=== PATIENT | male | born 1930 | race Caucasian/White ===

== ENCOUNTER 2016-11-19 17:06 | Inpatient (IN) | payer MEDICARE, OTHER ==
--- NOTE | ~2016-11-19 | DS ---
Unit #: [id number] #: [id number] Patient: JOZEF BATISTA [id number] [address] [place], [place] [address] [id number] I MR#: [id number] NAME: JOZEF BATISTA ROOM: 341 Age: 86 Sex: M Admission Date: 11/20/2016 : 1930 Discharge Date: Attending Physician: Thiago Manning M.D. Primary Care Physician: Milton Banerjee M.D. DISCHARGE SUMMARY DISCHARGE DIAGNOSES 1. Chest pain status post cardiac catheterization performed by Dr. Manning on 11/21/2016, in which findings revealed: a. Patent stent in the proximal circumflex. b. Stenosis, 50%, in the mid left circumflex. c. Severe aortic stenosis with aortic valve area of 1.02 centimeters squared with severe left ventricular systolic dysfunction, ejection fraction 25%, jrxl-io-hvcuulql pulmonary hypertension and ztkz-pq-vkidaroa aortic regurgitation. d. Recommendations - Continue on medical therapy with strict fluid restriction, salt restriction. Continuation of treatment with nonselective beta-blockers, diuretics and afterload reducing agents. 2. Diabetes mellitus type 2, insulin dependent. 3. Hypertension. 4. Permanent pacemaker. 5. Right bundle branch block on electrocardiogram. 6. Bronchiectasis with acute bronchitis. 7. 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 8. Benign prostatic hypertrophy. DISCHARGE MEDICATIONS 1. Humulin 70/30 - 27 units subcu b.i.d. 2. Allopurinol 300 mg p.o. daily. 3. Proscar 5 mg p.o. daily. 4. Aspirin 81 mg p.o. daily. 5. Amoxicillin 500 mg p.o. t.i.d. for 7 more days. 6. Flomax 0.4 mg p.o. daily. 7. Acetaminophen 1,000 mg p.o. daily p.r.n. 8. Calcium 600 mg p.o. daily. 9. Pioglitazone 45 mg p.o. daily. 10. Metoprolol 25 mg p.o. b.i.d. 11. Furosemide 40 mg 1 1/2 tablets in the morning and 1 1/2 tablets in the evening. 12. Lipitor 20 mg p.o. daily. 13. Altace 10 mg p.o. daily. 14. K-Dur 20 mEq p.o. daily. HOSPITAL COURSE This is an 86-year-old white male who came to the hospital with complaints of sudden onset of sharp shooting pain in the right lower chest area radiating to the base of the neck and also into the right upper and lower extremity. He denied any diaphoresis. No palpitations. Denied Unit #: [id number] #: [id number] Patient: JOZEF BATISTA any dizziness, pre-syncope or syncope or any problems swallowing. He took 2 sublingual nitroglycerin, and the pain eased off. He had not had any fever or chills but has a chronic cough. He was concerned because he stated he had never had any similar pains in the past. He did mention that he had been having worsening shortness of breath on minimal exertion over the last several weeks, and he has been having to stop more frequently to rest in his day-to-day activities. He also reported that his leg edema was worsening. The patient had a CT of the chest that showed advanced emphysematous changes. No effusions, but there was some bronchiectasis in the lower lobes. Also found was aneurysmal dilatation of the ascending aorta, up to 4 cm, and calcified aortic valve. Patient was started on antibiotics for the bronchiectasis. It was felt that some of his chest pain was more pleuritic in nature. Also on the chest x-ray, it had been indicated that he had some fluid overload. With the patient having known aortic stenosis and having a stent in the past, it was felt he should have further ischemic heart disease workup and evaluate his aortic stenosis by cardiac catheterization. Dr. Manning performed a right and a left heart catheterization yesterday, and there was no significant coronary artery stenosis, and his stent in the prophylaxis circumflex was found to be patent. There was indication that there was severe aortic stenosis with an aortic valve area of 1.02 cm squared. Also, he was found to have severe left ventricular systolic dysfunction with ejection fraction 25% with zkcu-mx-oictoafq pulmonary hypertension. Dr. Manning, because of the aortic valve area of 1.02 cm squared, felt like at this time he does not meet criteria for a TAVR. He will continue to monitor him closely as an outpatient. He also felt like aortic valve replacement by open heart surgery would carry a high risk given his age and his severe left ventricular systolic dysfunction. Dr. Manning recommended that patient be continued on medical therapy with strict fluid restrictions, salt restrictions, continuation of treatment with nonselective beta-blockers, diuretics and afterload reducing agents. Right groin cath site is without oozing, hematoma or thrill. Patient has diuresed well, and his edema has lessened. Patient says he is feeling better. He will be discharged home today in stable condition. Vital signs are stable. PHYSICAL EXAMINATION (at time of discharge) VITAL SIGNS: Blood pressure is 108/58, heart rate 60, respirations 18, temperature 97.9, O2 sats 94% on room air. NECK: No jugular venous distention. Grade 1/6 systolic conducted murmur along both carotids, and his carotid upstrokes are markedly diminished. HEART: S1, S2, regular rate and rhythm. A grade 2/6 systolic murmur at the apex and left sternal border. LUNGS: A few faint crackles at bases; otherwise, diminished. ABDOMEN: Soft, nontender. EXTREMITIES: Pedal pulses are palpable. Trace to 1+ pedal edema. DIAGNOSTIC STUDIES LATEST LABORATORY DIAGNOSTIC DATA: Glucose is 93, BUN 19, creatinine 0.7, eGFR 84.3, sodium 141, potassium 3.7, chloride 109, CO2 27, calcium 8.9, magnesium 2. Fasting lipid profile - Cholesterol is 97, triglycerides 120, LDL 39, HDL 34. TSH is 1.13, free T4 is 0.79, and free T3 is 2.6. WBC Unit #: [id number] #: [id number] Patient: JOZEF BATISTA E 5.2, hemoglobin 11.1, hematocrit 34.2, platelets 173. CARDIOVASCULAR: Telemetry and EKG show sinus rhythm, atrial sensed and paced rhythm with underlying right bundle branch block and LVH. PLAN/INSTRUCTIONS 1. Patient will be discharged home today in stable condition. 2. Post cardiac cath instructions given to patient, advised on care of his right groin. There is no evidence of oozing, bleeding, thrill or hematoma. 3. Instructed to follow up with Dr. Manning on January 25, at 1:[address] Manning originally had ordered bilateral carotid ultrasound because of diminished carotid upstrokes, but that was not done during this hospitalization. It can be done later as an outpatient after he sees him in the office. There is no evidence of any stroke-like symptoms on this admission or at discharge. 5. Instructed the patient to follow up with his primary care physician in 1-2 weeks. 6. Reinforced CHF education to the patient, CHF education provided to the patient. 7. Patient is to continue on Amoxil 500 mg p.o. t.i.d. for 7 more days for his bronchiectasis. 8. Patient is on an EMI inhibitor for his cardiomyopathy besides being on Lasix, a beta-timbo, aspirin and potassium supplement. 9. Patient is to have a BMP in 2 weeks to follow up post cath, and besides, he is on Lasix and to monitor his BUN, creatinine and electrolytes. Dictated by... Gale Posada A.P.R.N. for Lewis Murphy/leighann TD: 11/22/2016 13:28 JOB #: [id number] DISCHARGE SUMMARY Page 1 of 1 X Gale Posada APRN DISCHARGE SUMMARY
--- NOTE | ~2016-11-19 | CR72 ---
[facility] A Service of [facility] RADIOLOGY TEXT RESULTS PATIENT: JOZEF BATISTA LOCATION: [facility] : [birth year] UNIT #: [id number] AGE: [address]: Supa Moore MD SEX: M ORDER DR: [id number] [facility] [address] [place], [place] [address] [id number] E MR#: [id number] Acc #: [id number] NAME: JOZEF BATISTA : 1930 SEX: M STUDY DATE/TIME: 11/19/2016 17:55 UNIT: [facility] ROOM: STUDY DESCRIPTION: CR Chest Single View Portable Attending Physician: Supa Moore M.D. Ordering Physician: Syed Underwood M.D. Primary Care Physician: Milton Banerjee M.D. MEDICAL IMAGING REPORT This report is preliminary unless electronic signature is present EXAM Frontal chest, 11/19/2016 INDICATIONS 86-year-old male with chest pain, tingling in the right side, dizziness symptoms 4 hours. TECHNIQUE Frontal chest compared with 07/12/2014. FINDINGS Left-sided pacemaker is new, compared to the prior study. Leads appear to be in satisfactory position. The heart is enlarged but stable. The vascularity is unremarkable. Increased interstitial prominence in both lungs with a mid and lower lung zone predominance right greater than left, unchanged and likely representing areas of chronic scarring and fibrosis. There is pleural thickening in the lung apices that is unchanged. No pneumothorax. No effusion or new dense consolidation. IMPRESSION 1. Cardiomegaly and chronic lung changes, no definite superimposed active disease or significant change. Dictated by... Andre Medellin M.D. THIS IS AN ELECTRONICALLY VERIFIED REPORT Andre Medellin M.D. at 11/19/2016 9:38 PM FLAVIA/gerard TD: 11/19/2016 20:44 JOB #: [id number] [facility] A Service [facility] RADIOLOGY TEXT RESULTS PATIENT: JOZEF BATISTA [id number] : [birth year] UNIT #: [id number] AGE: [address]: Supa Moore MD SEX: M ORDER DR: MEDICAL IMAGING REPORT Page 1 of 1 COPY
--- NOTE | ~2016-11-19 | CT14 ---
[facility] A Service of [facility] & [facility] RADIOLOGY TEXT RESULTS PATIENT: JOZEF BATISTA LOCATION: [facility] 341-01 : [birth year] UNIT #: [id number] AGE: [address]: Thiago Manning MD SEX: M ORDER DR: [id number] [facility] [address] [place], [place] [address] [id number] E MR#: [id number] Acc #: [id number] NAME: JOZEF BATISTA : 1930 SEX: M STUDY DATE/TIME: 11/19/2016 20:19 UNIT: [facility] ROOM: STUDY DESCRIPTION: CT Angio Abdomen and Pelvis Attending Physician: Supa Moore M.D. Ordering Physician: Supa Moore M.D. Primary Care Physician: Milton Banerjee M.D. MEDICAL IMAGING REPORT This report is preliminary unless electronic signature is present EXAM CT angiography of the chest, abdomen and pelvis, 11/19/2016 INDICATIONS Shortness of air today with pain in the chest, right flank pain extending into the jaw, symptoms began this afternoon and have been associated with nausea as well. TECHNIQUE Contrast-enhanced CT scan of the chest, abdomen and pelvis was performed utilizing a CT angiography protocol. 3-D reformats were performed. There are no comparison studies. This CT exam was performed with one or more of the following radiation dose reduction techniques: Automatic exposure control, adjustment of mA and/or kV according to patient size, and iterative reconstruction. FINDINGS CT ANGIOGRAPHY FINDINGS: There is motion degradation. There are atherosclerotic calcifications involving the aortic valve plane. The ascending aorta is aneurysmal, measuring up to 4 cm. There is no dissection. There is atherosclerotic change of the thoracic aorta. Great vessels arising from the arch appear patent. There is expected arch anatomy. Descending thoracic aorta measures 3.1 cm. Main pulmonary artery measures 3.3 cm, borderline in diameter. Correlate with signs or symptoms of pulmonary arterial hypertension. No distinct evidence of acute pulmonary embolus in the central pulmonary arterial tree although this study was optimized and tailored for evaluation of the systemic arterial system. Descending thoracic aorta measures up to 3.1 cm. There is no evidence of abdominal aortic aneurysm. The celiac axis origin and SMA origins are patent. SHAY patent. Single right and dual left renal arteries. Mild atherosclerotic change of the renal arteries bilaterally. [facility] A Service of [facility] & [facility] RADIOLOGY TEXT RESULTS PATIENT: JOZEF BATISTA LOCATION: [facility] 341-01 : [birth year] UNIT #: [id number] AGE: [address]: Thiago Manning MD SEX: M ORDER DR: There is tortuosity and ectasia of the common iliac arteries with associated atherosclerotic disease. External and internal iliac arteries are patent. There is an aneurysm of the bifurcation of the internal iliac artery on the left measuring up to 2 cm. No dissection. Superficial and deep femoral arteries appear patent bilaterally. NONANGIOGRAPHY FINDINGS CT CHEST: The lungs demonstrate advanced emphysematous change with multifocal scarring and fibrosis. There is no effusion. There is bronchiectasis in the lower lobes. Atelectatic changes are present in the left upper lobe and lingula. No suspicious pulmonary nodule. Included thyroid unremarkable. Reactive-appearing mediastinal nodes. Reactive-appearing hilar nodes. No axillary adenopathy. No pericardial effusion. CT ABDOMEN: Granulomatous changes are present in the spleen and the adrenal glands demonstrate probable hyperplasia. Pancreas is atrophic. Gallbladder unremarkable, liver unremarkable. Postop changes involving the gastrohepatic ligament. This may reflect sequelae of hiatal hernia repair. Kidneys demonstrate cortical scarring on the left, no hydronephrosis. No adenopathy or drainable fluid collection. CT PELVIS: Bladder unremarkable. Inguinal hernias containing fat only are present bilaterally, right greater than left. Mild prostatomegaly, which should be correlated with PSA levels and physical exam. No drainable fluid collection in the pelvis or free fluid. There is extensive diverticulosis of the sigmoid colon, no distinct CT evidence of acute diverticulitis. Stool burden suggestive of constipation. The appendix is not clearly identified but there is no secondary sign of appendicitis or inflammatory change in the right lower quadrant. There is redundancy of the ascending colon and sigmoid colon. No inguinal adenopathy or fluid collection. Osseous structures demonstrate degenerative change in the thoracolumbar spine but no suspicious bone lesion. There are numerous venous collaterals associated with the paravertebral soft tissues and chest wall on the left. Precise etiology is unclear. SVC appears to be patent. IMPRESSION 1. There is aneurysmal dilatation of the ascending aorta up to 4 cm. There is otherwise no evidence of aortic aneurysm. No aortic dissection. 2. Calcifications associated with the aortic valve. This may account for the ascending aorta aneurysm on a post-stenotic basis. 3. There is an aneurysm of the internal iliac artery on the left at its bifurcation measuring up to 2 cm. No complicating features. 4. Major branch vessels from the aortic arch and in the abdomen appear patent. Incidental dual supply to the left kidney by 2 renal arteries. 5. To the extent the pulmonary arteries are visualized, there is no STS. [facility] A Service of [facility] RADIOLOGY TEXT RESULTS PATIENT: JOZEF BATISTA LOCATION: [facility] 341-01 : [birth year] UNIT #: [id number] AGE: [address]: Thiago Manning MD SEX: M ORDER DR: evidence of acute pulmonary embolus. 6. Lungs demonstrate advanced emphysematous change with areas of atelectasis and scarring and bronchiectasis as described. No distinct evidence of pneumonia and no pleural effusion. 7. Reactive-appearing lymph nodes in the mediastinum and hilar stations. 8. Postop changes upper abdomen likely reflect sequelae of hiatal hernia repair. 9. Cortical scarring left kidney. 10. Extensive diverticulosis of the colon. 11. Appendix not identified and no secondary sign of appendicitis. 12. Prostatomegaly, which should be correlated with PSA levels and physical exam. 13. Inguinal hernias containing fat only bilaterally. 14. Other incidental findings as described above. Dictated by... Andre Medellin M.D. THIS IS AN ELECTRONICALLY VERIFIED REPORT Andre Medellin M.D. at 11/20/2016 10:22 AM FLAVIA/gerard TD: 11/19/2016 22:52 JOB #: [id number] MEDICAL IMAGING REPORT Page 1 of 1 COPY
--- NOTE | ~2016-11-19 | CT15 ---
[facility] A Service of [facility] & [facility] RADIOLOGY TEXT RESULTS PATIENT: JOZEF BATISTA LOCATION: [place] [address]- : [birth year] UNIT #: [id number] AGE: [address]: Thiago Manning MD SEX: M ORDER DR: [id number] [facility] [address]. [place], [place] [address] [id number] E MR#: [id number] Acc #: [id number] NAME: JOZEF BATISTA : 1930 SEX: M STUDY DATE/TIME: 11/19/2016 20:19 UNIT: [facility] ROOM: STUDY DESCRIPTION: CT Angio Chest Attending Physician: Supa Moore M.D. Ordering Physician: Syed Underwood M.D. Primary Care Physician: Milton Banerjee M.D. MEDICAL IMAGING REPORT This report is preliminary unless electronic signature is present EXAM CT angio chest HISTORY Shortness of air today with pain in the chest, right flank pain extending into the jaw, symptoms began this afternoon and have been associated with nausea as well. FINDINGS Please see CT ANGIO ABDOMEN AND PELVIS report for combined text results. Dictated by... Andre Medellin M.D. THIS IS AN ELECTRONICALLY VERIFIED REPORT Andre Medellin M.D. at 11/20/2016 10:29 AM FLAVIA/gerard TD: 11/19/2016 22:56 JOB #: [id number] MEDICAL IMAGING REPORT Page 1 of 1 COPY
--- NOTE | ~2016-11-19 | EKG ---
PATIENT: JOZEF BATISTA UNIT #: [id number] Ventricular Rate: 67 BPM Atrial Rate: 67 BPM P-R Interval: 340 ms QRS Duration: 138 ms Q-T Interval: 496 ms QTC Calculation(Bezet): 524 ms Calculated R [place]: -63 degrees Calculated T [place]: 39 degrees Diagnosis Line: Atrial-paced rhythm with prolonged AV conduction Diagnosis Line: Right bundle branch block Diagnosis Line: Left anterior fascicular block Diagnosis Line: Bifascicular block Diagnosis Line: Minimal voltage criteria for LVH, may be normal Diagnosis Line: variant Diagnosis Line: Abnormal ECG Diagnosis Line: When compared with ECG of 12-JUL-2014 04:50, Diagnosis Line: Electronic atrial pacemaker has replaced Sinus Diagnosis Line: rhythm Diagnosis Line: T wave inversion no longer evident in Inferior Diagnosis Line: leads Diagnosis Line: Confirmed by ARIELLE MACIAS MD ([id number]) on Diagnosis Line: 11/22/2016 8:43:24 AM INTERPRETING MD: COLLEEN MERCHANT
--- NOTE | ~2016-11-19 | HP ---
Unit #: [id number] #: [id number] Patient: JOZEF STALLWORTH [id number] [facility]. [place], [place] [address] [id number] I MR#: [id number] NAME: JOZEF STALLWORTH. ROOM: 341 Age: 86 Sex: M Admission Date: 11/19/2016 : 1930 Attending Physician: Thiago Mannnig M.D. Primary Care Physician: Milton Banerjee M.D. HISTORY AND PHYSICAL REASON FOR ADMISSION Chest pain and shortness of breath. HISTORY Mr. Stallworth is an 86-year-old white male who was hanging his laundry yesterday evening when he had sudden onset of sharp shooting pain in the right lower quadrant of the chest radiating to the base of the neck, accompanied by gangrene in the right upper and lower extremity without any diaphoresis, palpitations, dizziness, dysphagia. The pains lasted for about 30 to 40 minutes after taking two sublingual nitroglycerin. He denied any pleuritic component of the pain, head no radiation of the pain to the mid sternal area. He denied any cough, fever, chills or rigors. The patient had never had similar pains before. Over the last few weeks, he had worsening shortness of breath on minimal exertion and has had to take more frequent rest stops on his day-to-day activities. He has noted worsening leg edema. He has followed his salt and fluid restriction, denies any orthopnea or nocturnal dyspnea, syncope or near syncope. The patient underwent a permanent pacemaker implantation in 2012 because of recurrent episodes of lightheadedness and episodes of significant bradycardia with very frequent premature ventricular contractions on electrocardiograms with inability to tolerate beta blockers. PAST MEDICAL HISTORY Significant for: 1. Hyperlipidemia. 2. Hypertension. 3. Insulin dependent diabetes mellitus. 4. Plain old balloon angioplasty circumflex coronary artery in 1993. 5. PCI with stent insertion circumflex coronary artery in 2002, found to be patent in 2012. 6. Moderate aortic stenosis with low cardiac output, low gradient status. Cardiac catheterization in 2012 showed use of intravenous dopamine, increased aortic valve area from 1.1 cm sq. to 1.6 cm sq. with an index increasing to 0.77 sq. cm. There was mild pulmonary arterial hypertension. SOCIAL AND PERSONAL HISTORY He stopped smoking a number of years ago. FAMILY HISTORY Negative for ischemic heart disease. PHYSICAL EXAMINATION Unit #: [id number] #: [id number] Patient: JOZEF STALLWORTH GENERAL: Elderly white male, very well preserved for his age, in no acute cardiorespiratory distress. There is no jugular venous distention, carotid upstrokes are markedly diminished. There is a grade 1/6 systolic murmur conducted along both carotids. There is no ankle edema. CARDIAC EXAM: Apical impulse is displaced outside the midclavicular line. First heard sound is soft, second heart sound is markedly diminished in intensity. There is a grade 2/6 systolic murmur heard best at the apex. No diastolic murmur could be appreciated. CHEST EXAMINATION: Shows good air entry bilaterally without any rales or rhonchi. Normal to palpation and percussion. ABDOMEN: Soft, nontender anterior abdominal wall. There is no organomegaly, there is no free fluid or masses. RECTAL EXAMINATION: Not done. [employer] EXAMINATION: Within normal limits. DIAGNOSTIC STUDIES CARDIOVASCULAR: Electrocardiogram shows normal sinus rhythm, first degree AV block, right bundle branch block, left anterior hemiblock and no acute ischemic changes are noted. Admission cardiac enzymes are normal. IMAGING: CT angiography of the chest done in the emergency room shows advanced emphysematous changes. There was no effusion. There was bronchiectasis in the lower lobes. Atelectatic changes were noted in the left upper lobe and the lingula and there are reactive appearing lymph nodes. There is aneurysmal dilatation of the ascending aorta up to 4 cm and calcified aortic valve. DIAGNOSES 1. Chest pains, probably secondary to right basilar atelectasis. 2. Moderate to severe aortic stenosis with low cardiac output, low gradient stenosis. 3. Insulin dependent diabetes mellitus. 4. History of percutaneous coronary intervention circumflex coronary artery in 2003, found to be patent in 2013. 5. Mild to moderate pulmonary artery hypertension. 6. Benign essential hypertension. 7. Right bundle branch block, left anterior hemiblock, permanent pacemaker implantation. 8. Bronchiectasis. PLAN The patient will be started on intravenous Lasix because of evidence of mild congestive heart failure with fluid overload on chest x-ray. Patient is advised to consider right and left heart catheterization to evaluate progression of aortic valve stenosis with intravenous dopamine challenge. Dictated by Lewis Murphy/venu TD: 11/20/2016 08:31 JOB #: [id number] Unit #: [id number] #: [id number] Patient: JOZEF STALLWORTH HISTORY AND PHYSICAL Page 1 of 1 X Thiago Manning MD HISTORY AND PHYSICAL
--- NOTE | ~2016-11-19 | EKG ---
PATIENT: JOZEF BATISTA UNIT #: [id number] Ventricular Rate: 67 BPM Atrial Rate: 67 BPM P-R Interval: 336 ms QRS Duration: 172 ms Q-T Interval: 450 ms QTC Calculation(Bezet): 475 ms P [place]: 97 degrees Calculated R [place]: -67 degrees Calculated T [place]: 22 degrees Diagnosis Line: Electronic atrial pacemaker Diagnosis Line: Right bundle branch block Diagnosis Line: Left anterior fascicular block Diagnosis Line: Bifascicular block Diagnosis Line: Nonspecific ST depression Diagnosis Line: Abnormal ECG Diagnosis Line: When compared with ECG of 19-NOV-2016 17:12, Diagnosis Line: (unconfirmed) Diagnosis Line: QRS duration has increased Diagnosis Line: Confirmed by SCOOTER VALENZUELA MD ([id number]) on 11/20/2016 Diagnosis Line: 9:58:31 PM INTERPRETING MD: BIANCA MERCHANT
[~2016-11-19 17:06] MED LIST: ACETAMINOPHEN PO; ACTOS; ALLOPURINOL300 MG PO; ALTACE PO; ASPIRIN; ASPIRIN81 MG PO; FINASTERIDE5 MG PO; FLOMAX0.4 M1 PO; FLOMAX0.4 MG; GUAIFENESIN400 M1 PO; HUMULIN 70/30 V10 ML; HUMULIN 70100 UNITS/ SUBQ; K-DUR20 ME1 PO; KCL; LASIX; LASIX PO; LIPITOR; LIPITOR20 MG PO; METOPROLOL TAR25 MG PO; MUCINEX DM1 TAB.SR . PO; PIOGLITAZONE45 MG PO; PLAVIX; PROSCAR5 MG; PROSCAR5 MG PO; RAMIPRIL10 MG PO; TOPROL XL; TOPROL XL PO; VIT E; ZANTAC150 MG PO; ZYLOPRIM
[2016-11-19 18:21] LABS: BASOPHIL% 0.9 % (0-2.5); EOSINOPHIL# 0.1 X10e3 (0-0.7); EOSINOPHIL% 1.4 % (0.0-7.0); HEMATOCRIT 36.9 % (38.0-50.0); HEMOGLOBIN 12.1 gm/dL (13.0-16.0); LYMPHOCYTE# 0.9 X10e3 (1.0-3.5); LYMPHOCYTE% 16.9 % (17.0-45.0); MEAN CELL VOLUME 101.8 FL (83-96); MEAN CORPUSCULAR HEMOGLOBIN 33.4 PG (28-34); MEAN CORPUSCULAR HGB CONC 32.8 g/dL (30-36); MEAN PLATELET VOLUME 8.6 FL (6.5-11.5); MONOCYTE# 0.6 X10e3 (0-1.0); MONOCYTE% 10.9 % (3.0-12.0); NEUTROPHIL# 3.6 X10e3 (1.5-7.1); NEUTROPHIL% 69.9 % (40-75); PLATELET COUNT 200 X10e3 (140-420); RED BLOOD COUNT 3.62 X10e (3.90-5.60); RED CELL DISTRIBUTION WIDTH 14.9 % (11.0-15.5); WHITE BLOOD COUNT 5.1 X10e3 (4.0-10.5)
[2016-11-19 18:22] LABS: DIFF IND NO
[2016-11-19 18:22] LABS: POC - CKMB 3.9 ng/mL (0.0-7.9); POC - TROPONIN <0.05 ng/mL (<=0.05)
[2016-11-19 18:35] LABS: PARTIAL THROMBOPLASTIN TIME 28.5 SECONDS (23.5-31.3); PROTHROMBIN TIME (PATIENT) 10.3 SECONDS (9.6-11.5)
[2016-11-19 18:39] LABS: ALBUMIN SERUM 3.7 g/dL (3.5-5.0); BILIRUBIN, DIRECT 0.1 mg/dL (0.0-0.2); BILIRUBIN,INDIRECT 0.5 mg/dL (0.0-0.9); BILIRUBIN,TOTAL 0.6 mg/dL (0.2-2.0); BUN/CREATININE RATIO 37.5; CALCIUM SERUM 8.9 mg/dL (8.4-10.2); CREATININE SERUM 0.8 mg/dL (0.6-1.4); GLOM FILT RATE Estimated 79.8 mL/min (>60); PROTEIN TOTAL SERUM 6.2 g/dL (6.0-8.3)
[2016-11-19 19:50] LABS: POC - CKMB 3.5 ng/mL (0.0-7.9); POC - TROPONIN <0.05 ng/mL (<=0.05)
[2016-11-19 20:49] LABS: POC - TROPONIN <0.05 ng/mL (<=0.05)
[2016-11-19] MEDS ORDERED: ALLOPURINOL300 MG PO (21:13)
[2016-11-19] MEDS ORDERED: K-DUR20 ME1 PO (21:13)
[2016-11-19] MEDS ORDERED: ASPIRIN81 MG PO (21:13)
[2016-11-19] MEDS ORDERED: PIOGLITAZONE45 MG PO (21:14)
[2016-11-19] MEDS ORDERED: LIPITOR20 MG PO (21:14)
[2016-11-19] MEDS ORDERED: ALTACE10 MG PO (21:15)
[2016-11-19] MEDS ORDERED: FUROSEMIDE40 MG PO (21:17)
[2016-11-19] MEDS ORDERED: PROSCAR5 MG PO (21:18)
[2016-11-19] MEDS ORDERED: HUMULIN 70100 UNIT/1 SUBQ (21:18)
[2016-11-19] MEDS ORDERED: FLOMAX0.4 M1 PO (21:19)
[2016-11-19] MEDS ORDERED: ACETAMINOPHEN PO (21:20)
[2016-11-19] MEDS ORDERED: METOPROLOL SUCC25 MG PO (21:21)
[2016-11-19] MEDS ORDERED: CALCIUM500 M1 PO (21:22)
[2016-11-20 11:04] LABS: CHOLESTEROL 97 mg/dL (0-200); HDL CHOLESTEROL 34 mg/dL (29-75); LDL CHOLESTEROL 39 mg/dL (-130); LDL/HDL RATIO 1 RATIO (0-4); TRIGLYCERIDES 120 mg/dL (10-160)
[2016-11-20 11:12] LABS: FREE T3 2.6 pg/mL (2.5-3.9)
[2016-11-20 11:14] LABS: FREE THYROXIN (T4) 0.79 ng/dL (0.58-1.64)
[2016-11-20 11:52] LABS: %MB 3.6 % (0.0-4.0); MB 7.8 ng/ml
[2016-11-21 06:31] LABS: HEMATOCRIT 34.2 % (38.0-50.0); HEMOGLOBIN 11.1 gm/dL (13.0-16.0); MEAN CORPUSCULAR HEMOGLOBIN 33.2 PG (28-34); MEAN CORPUSCULAR HGB CONC 32.5 g/dL (30-36); MEAN PLATELET VOLUME 8.9 FL (6.5-11.5); RED BLOOD COUNT 3.36 X10e (3.90-5.60); RED CELL DISTRIBUTION WIDTH 14.9 % (11.0-15.5); WHITE BLOOD COUNT 5.2 X10e3 (4.0-10.5)
[2016-11-21 06:37] LABS: PARTIAL THROMBOPLASTIN TIME 29.4 SECONDS (23.5-31.3); PROTHROMBIN TIME (PATIENT) 10.7 SECONDS (9.6-11.5)
[2016-11-21 07:18] LABS: BUN/CREATININE RATIO 27.14; CALCIUM SERUM 8.9 mg/dL (8.4-10.2); CREATININE SERUM 0.7 mg/dL (0.6-1.4); GLOM FILT RATE Estimated 84.3 mL/min (>60); POTASSIUM 3.7 mmol/L (3.5-5.1)
[2016-11-22] MEDS ORDERED: AMOXICILLIN500 M1 PO (12:30)
== END 2016-11-22 14:00 | disposition home or self-care (01) | DRG 286 ==
LOC: CED 17:06 → C3A PCU 22:50 → CEDOF 22:50 → C3A PCU 22:50 → CEDOF 23:12 → CED 23:12 → C3A PCU 11-20 02:15 → CEDOF 11-20 02:15 → C3A PCU 11-20 14:40 → CED 11-20 14:40 → CEDOF 11-20 14:40 → C3A PCU 11-20 14:40
PROVIDERS: Emergency Medicine; Internal Medicine Cardiovascular Disease
PROC: B32TYZZ Computerized Tomography (CT Scan) of Left Pulmonary Artery using Other Contrast (ICD-10-PCS; principal; 2016-11-20)
PROC: B32SYZZ Computerized Tomography (CT Scan) of Right Pulmonary Artery using Other Contrast (ICD-10-PCS; 2016-11-20)
PROC: B420YZZ Computerized Tomography (CT Scan) of Abdominal Aorta using Other Contrast (ICD-10-PCS; 2016-11-20)
PROC: B42CYZZ Computerized Tomography (CT Scan) of Pelvic Arteries using Other Contrast (ICD-10-PCS; 2016-11-20)
PROC: 4A023N8 Measurement of Cardiac Sampling and Pressure, Bilateral, Percutaneous Approach (ICD-10-PCS; 2016-11-21)
PROC: B310YZZ Fluoroscopy of Thoracic Aorta using Other Contrast (ICD-10-PCS; 2016-11-21)
PROC: B211YZZ Fluoroscopy of Multiple Coronary Arteries using Other Contrast (ICD-10-PCS; 2016-11-21)
PROC: B215YZZ Fluoroscopy of Left Heart using Other Contrast (ICD-10-PCS; 2016-11-21)
DX: I25.119 Atherosclerotic heart disease of native coronary artery with unspecified angina pectoris (principal); I50.23 Acute on chronic systolic (congestive) heart failure; I27.2 Other secondary pulmonary hypertension; J47.0 Bronchiectasis with acute lower respiratory infection; I35.0 Nonrheumatic aortic (valve) stenosis; E11.9 Type 2 diabetes mellitus without complications; Z79.4 Long term (current) use of insulin; I45.10 Unspecified right bundle-branch block; Z95.0 Presence of cardiac pacemaker; I11.0 Hypertensive heart disease with heart failure; N40.0 Benign prostatic hyperplasia without lower urinary tract symptoms; I77.819 Aortic ectasia, unspecified site; I72.3 Aneurysm of iliac artery
CPT/HCPCS: 36415; 71010; 71275; 74174; 80048; 80061; 80076; 82550; 82553; 82810; 82947; 83036; 83735; 84439; 84443; 84481; 84484; 85025; 85027; 85347; 85610; 85730; 93005; 99285; C1769; C1887; C1894; J1644; J1815; J1940; J2250; J3010; J3490; Q9967

== ENCOUNTER → 2016-12-06 | Outpatient (CLI) | payer MEDICARE, OTHER ==
[~2016-12-06] MED LIST changes: +ALTACE10 MG PO; +AMOXICILLIN500 M1 PO; +CALCIUM500 M1 PO; +FUROSEMIDE40 MG PO; +HUMULIN 70100 UNIT/1 SUBQ; +METOPROLOL SUCC25 MG PO
[2016-12-06 13:00] LABS: BUN/CREATININE RATIO 32.85; CALCIUM SERUM 9.2 mg/dL (8.4-10.2); CREATININE SERUM 0.7 mg/dL (0.6-1.4); GLOM FILT RATE Estimated 84.3 mL/min (>60); POTASSIUM 4.3 mmol/L (3.5-5.1)
== END | disposition home or self-care (01) ==
LOC: CLAB 11:38
PROVIDERS: Nurse Practitioner
DX: Z48.812 Encounter for surgical aftercare following surgery on the circulatory system (principal)
CPT/HCPCS: 36415; 80048